=== PATIENT | male | born 1960 | race Caucasian/White ===

== ENCOUNTER 2017-03-24 09:59 | Day surgery (SDC) | payer OTHER ==
[~2017-03-24] VITALS: Ht 165.1 cm; Wt 93.7 kg
[2017-03-24 10:22] VITALS: Ht 165.1 cm; Wt 93.7 kg
[2017-03-24 11:00] VITALS: BP 141/75; PULSE 62; RESP 14
[2017-03-24] MEDS ORDERED: PROPOFOL 60 ML ONE (11:00)
[2017-03-24] MEDS ORDERED: LIDOCAINE 100 MG SYRINGE ONE (11:01)
--- NOTE | 2017-03-24 11:35 | OPPN ---
Date/Time of Note Date/Time of Note DATE: 03/24/17 TIME: 11:34 Operative Report Preoperative Diagnosis Abdominal pain Chronic heartburn Screening Postoperative Diagnosis Gastroesophageal reflux disease Gastritis with erosions Internal hemorrhoids No colon neoplasm was identified Operation/Procedure Performed Esophagogastroduodenoscopy and biopsy Colonoscopy Surgeon see signature line railways assistant None Anesthesia: MAC Estimated blood loss: none Transfusion Required none Specimen Gastric mucosal biopsy Grafts/Implants none Complications none ONEIDA PARKER MD Mar 24, 2017 11:35
[2017-03-24 11:37] VITALS: BP 111/65; PULSE 55; RESP 16
[2017-03-24 12:15] VITALS: BP 129/83; PULSE 50; RESP 18
--- NOTE | 2017-03-25 07:16 | GILP ---
DATE OF PROCEDURE: NAME OF PROCEDURES: 1. Esophagogastroduodenoscopy and biopsy. 2. Colonoscopy. SURGEON: Oneida Cummings MD PREOPERATIVE DIAGNOSES: 1. Abdominal pain. 2. Chronic heartburn. 3. Screening colonoscopy. POSTOPERATIVE DIAGNOSES: 1. Gastroesophageal reflux disease. 2. Gastritis with erosions. 3. Gastric mucosal biopsies were taken for Helicobacter pylori test. 4. Colonoscopy all the way to the cecum. 5. Internal hemorrhoids. 6. No colon neoplasm was identified. INDICATION FOR THE PROCEDURE: Mr. Augustin Becker is a 56-year-old male patient who had upper abdom inal pain and chronic heartburn, not responding to therapy. He also needed screening colonoscopy. The procedures and possible complications were well explained to the patient. The patient understoo d and consented to the procedures. DESCRIPTION OF PROCEDURE: Under the influence of anesthesia, the gastroscope was carefully introduc ed into the esophagus and under direct vision, it was advanced to the stomach and through the pyloru s into the duodenal bulb and descending duodenum. FINDINGS: ESOPHAGUS: The patient had gastroesophageal reflux disease. STOMACH: He had gastritis with erosions. Gastric mucosal biopsies were taken for H. pylori test. Duodenum was normal. He tolerated the procedure very well and there was no complication from the procedure. At the end o f the procedure, he was awake with stable vital signs and he was discharged home to the care of his family. IMPRESSION: Please see postoperative diagnoses. PLAN: 1. Omeprazole 40 mg p.o. q.a.m. 2. Await H. pylori test report. 3. Next screening colonoscopy in 10 years. Dictated By: ONEIDA LÓPEZ/TAYLOR Conf#: [id number] DID#: [id number]
== END 2017-03-24 18:15 | disposition home or self-care (01) ==
LOC: GIL 09:59
PROVIDERS: ATTEND Internal Medicine Gastroenterology
DX: Z12.11 Encounter for screening for malignant neoplasm of colon (principal); K21.9 Gastro-esophageal reflux disease without esophagitis; K29.70 Gastritis, unspecified, without bleeding; K64.8 Other hemorrhoids
CPT/HCPCS: 43239; 45378; 87081; J2001; Z7610